=== PATIENT | female | born 1960 | race Caucasian/White ===

== ENCOUNTER → 2018-10-08 | Day surgery (SDC) | payer OTHER ==
--- NOTE | 2018-10-08 10:55 | RAD REPORT ---
EXAM DESCRIPTION: Ultrasound-guided vacuum assisted left breast core biopsy CLINICAL HISTORY: Breast mass N63.20 COMPARISON: 3D SCR [facility] BILAT W/CAD dated 07/31/2018; Follow Up [facility] dated 09/26/2018 FINDINGS: Informed consent was obtained and time-out was performed. The patient's left breast was prepped and draped in the usual sterile fashion. 1% lidocaine was used for local anesthetic purposes. Utilizing aseptic technique and ultrasound guidance, a 12 gauge vacuum assisted core biopsy device wa s used to obtain 2 core specimen through the mass of interest. A post biopsy clip was then placed. All collected material was sent for cytology. Patient tolerated procedure well. IMPRESSION: Successful ultrasound guided vacuum assisted left breast mass biopsy.
== END ==
LOC: DS 09:43
PROVIDERS: ATTEND Physician Assistant
DX: D24.2 Benign neoplasm of left breast (principal)
CPT/HCPCS: 19083; 88305